=== PATIENT | male | born 1980 | race Hispanic/Latino ===

== ENCOUNTER 2017-06-26 09:11 | Emergency (ER) | payer BC ==
[2017-06-26 09:25] VITALS: BMI 28.1
[2017-06-26] MEDS ORDERED: Ampicillin/Sulbactam 3 GM in Sodium Chloride 0.9% 100 ML IVPB STA (09:27)
[2017-06-26 10:01] VITALS: TEMP 99.1
[2017-06-26 10:05] LABS: BASO % 0.4 % (0.0-2.0); EOS # 0.1 K/uL (0.0-0.7); EOS % 1.2 % (0.0-4.0); HEMATOCRIT 42.4 % (35.0-51.0); LYMPH # 1.5 K/uL (1.0-4.3); LYMPH % 26.2 % (20.0-40.0); MEAN CELL VOLUME 84.9 fl (80.0-94.0); MEAN CORPUSCULAR HEMOGLOBIN 27.9 pg (27.0-31.0); MEAN CORPUSCULAR HGB CONC 32.8 g/dL (33.0-37.0); MONO # 0.4 K/uL (0.0-0.8); MONO % 6.4 % (0.0-10.0); NEUT # 3.9 K/uL (1.8-7.0); NEUT % 65.8 % (50.0-75.0); NRBC % 0.2 % (0.0-0.0); WHITE BLOOD COUNT 5.9 K/uL (4.8-10.8)
[2017-06-26 10:15] LABS: ALB/GLOB RATIO 1.5 (1.0-2.1); ALKALINE PHOSPHATASE 65 U/L (38-126); ALT/SGPT 64 U/L (21-72); AST/SGOT 35 U/L (17-59); BILIRUBIN,TOTAL 0.5 mg/dl (0.2-1.3); BLOOD UREA NITROGEN 14 mg/dl (9-20); CALCIUM 10.1 mg/dL (8.4-10.2); CARBON DIOXIDE 21 mmol/L (22-30); CHLORIDE 109 mmol/L (98-107); GFR AFRICAN-AMERICAN > 60; GLUCOSE,RANDOM 97 mg/dL (75-110); SODIUM 143 mmol/l (132-148); TOTAL PROTEIN 7.9 G/DL (6.3-8.2)
--- NOTE | 2017-06-26 10:35 | ED PDOC ---
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 Patient suspects to have been bitten by an insect but is uncertain. He reports developing a fever yesterday which has since resolved. He was given clindamycin po and reports to have only taken 2 tablets thus far. He denies pain. PMD: none provided Past Medical History Reviewed: Historical Data, Nursing Documentation, Vital Signs Vital Signs: Last Vital Signs Temp 99.1 F 06/26/17 09:41 Pulse 88 06/26/17 11:00 Resp 16 06/26/17 11:00 BP 140/90 06/26/17 11:00 Pulse Ox 100 06/26/17 11:00 - Medical History PMH: No Chronic Diseases - Surgical History Surgical History: No Surg Hx - Family History Family History: States: Unknown Family Hx - Social History Current smoker - smoking cessation education provided: No Alcohol: None Drugs: Denies - Allergies Allergies/Adverse Reactions: Allergies Allergy/AdvReac Type Severity Reaction Status Date / Time No Known Allergies Allergy Verified 06/26/17 09:24 Physical Exam - Reviewed Nursing Documentation Reviewed: Yes Vital Signs Reviewed: Yes - Physical Exam Appears: Positive for: Well, Non-toxic, No Acute Distress Head Exam: Positive for: ATRAUMATIC, NORMAL INSPECTION, NORMOCEPHALIC Skin: Positive for: Normal Color, Warm, Dry Eye Exam: Positive for: Normal appearance ENT: Positive for: Normal ENT Inspection Neck: Positive for: Normal Extremity: Positive for: Normal ROM, Swelling ( to the right hand , warmth and erythema on dorsum of the hand up to right above the elbow . streaking. no abscess or fluctuance noted. no open wounds), Other (h). Negative for: Tenderness, Deformity Neurologic/Psych: Positive for: Alert, Oriented - Laboratory Results Result Diagrams: 06/26/17 09:40 06/26/17 09:40 - ECG O2 Sat by Pulse Oximetry: 99 (RA) Pulse Ox Interpretation: Normal Medical Decision Making Medical Decision Making: Initial Impression: erythematous arm r/o cellulitis Initial Plan: * labs * IV unasyn * blood culture * reevaluation wbc normal pt states the erythema decreased after iv abx pt instructed to continue po abx and follow up for reeval with primary doctor in 2 days return with any worsening streaking redness or other concerns pt agreeable Scribe Attestation: Documented by Maya Woo, acting as a scribe for Marla Ramírez MD. Provider Scribe Attestation: All medical record entries made by the Scribe were at my direction and personally dictated by me. I have reviewed the chart and agree that the record accurately reflects my personal performance of the history, physical exam, medical decision making, and the department course for this patient. I have also personally directed, reviewed, and agree with the discharge instructions and disposition. Disposition - Clinical Impression Clinical Impression: Cellulitis - Patient ED Disposition Is Patient to be Admitted: No Counseled Patient/Family Regarding: Studies Performed, Diagnosis, Need For Followup - Disposition Disposition: Routine/Home Disposition Time: 11:00 Condition: IMPROVED Additional Instructions: follow up with your doctor for 2 days for reevaluation of redness and streaking return to the ED with any worsening or concerning symptoms such as fever, increasing redness or swelling or other concerns continue home oral antibiotics Instructions: Cellulitis (ED) Forms: [employer] (Surinamese)
[2017-06-26 11:04] VITALS: BP 140/90; PULSE 88; RESP 16
[2017-06-26 14:15] VITALS: O2SAT 99
== END 2017-06-26 11:06 | disposition home or self-care (01) ==
LOC: H.ER 09:11
DX: L03.113 Cellulitis of right upper limb (principal); F31.9 Bipolar disorder, unspecified
CPT/HCPCS: 80053; 85025; 87040; 96374; 99283; J0295